=== PATIENT | female | born 1985 | race Two or more races ===

== ENCOUNTER 2023-12-24 07:23 | Emergency (ER) | payer MEDICAID, OTHER ==
[~2023-12-24] VITALS: Ht 162.6 cm; Wt 109.3 kg
[2023-12-24 07:58] VITALS: BP 124/82; PULSE 114; RESP 18; O2SAT 97
[2023-12-24] MEDS ORDERED: DOCU-94 PO (08:36)
[2023-12-24] MEDS ORDERED: HYDR25SU21 PR (08:36)
== END 2023-12-24 09:10 | disposition home or self-care (01) ==
LOC: ER 07:23
DX: K64.4 Residual hemorrhoidal skin tags (principal); Z98.890 Other specified postprocedural states

== ENCOUNTER 2024-12-25 12:42 | Emergency (ER) | payer MEDICAID ==
[~2024-12-25] VITALS: Ht 160 cm; Wt 113.2 kg
[~2024-12-25 12:42] MED LIST: DOCU-94 PO; HYDR25SU21 PR
[2024-12-25 12:44] VITALS: TEMP 98
[2024-12-25 13:28] VITALS: BP 125/77; PULSE 99; RESP 18; O2SAT 98
--- NOTE | 2024-12-25 14:05 | ED.PDOC ---
HPI (NEURO) HPI Comments 39-year-old female w/ hx of chx migraines presents [facility] . Patient reports on having this chronic headache for 10 years and has been taking all of her medications for which only subsides pain for 1 hour then comes back. Patient states the headache is on the left side, pressure-like sensation and a 7/10 on the scale. Patient takes Ajovy for one month, gabapentin 600 3 times a day, qulibta times every day. Patient notes on having sensitivity to light and sound. Denies thunderclap headache Denies vomiting Denies thunderclap headache Denies photophobia, phonophobia Denies head trauma around the time headache started Denies family history of brain issues persistent headaches Denies taking any blood thinner medication Denies vision/hearing changes Denies focal loss of strength/sensation or changes in speech Chief Complaint: Headache Time Seen by MD: 14:00 Primary Care Provider: MARLYS Reviewed Notes: Nurses Notes, Medications, Allergies Information Source: Patient Mode of Arrival: Ambulatory Severity: Moderate Headache Severity: Severe Timing: Other (Ten years) Duration: Since onset, Other (10 years) Prehospital treatment: None Headache Quality: Tight Headache Location: Temporal (Left side) Onset: At rest Circumstances: Spontaneous Symptoms: Other (Headache) Before: Normal During: Awake After: Headache History of: None Associated Signs and Symptoms: Headache Past Medical History Past Medical History (Other): Chronic headache Surgical History: Denies all surgeries TEST LEAD APPLICATION TESTING History: No Pertinent TEST LEAD APPLICATION TESTING History Family History Family History: Reviewed,noncontributory to illness, Unknown Social History Smoker: Non-Smoker Alcohol: Denies ETOH Use Drugs: Denies Drug Use Lives In: Home Constitutional: denies: chills, diaphoresis, fatigue, fever, malaise, sweats, weakness, others EENTM: denies: blurred vision, double vision, ear bleeding, ear discharge, ear drainage, ear pain, ear ringing, eye pain, eye redness, hearing loss, mouth pain, mouth swelling, nasal discharge, nose bleeding, nose congestion, nose pain, photophobia, tearing, throat pain, throat swelling, voice changes, others Respiratory: denies: cough, hemoptysis, orthopnea, SOB at rest, shortness of breath, SOB with excertion, stridor, wheezing, others Cardiovascular: denies: chest pain, dizzy spells, diaphoresis, Dyspnea on exertion, edema, irregular heart beat, left arm pain, lightheadedness, palpitations, PND, syncope, others Gastrointestinal: denies: abdomen distended, abdominal pain, blood streaked bowels, constipated, diarrhea, dysphagia, difficulty swallowing, hematemesis, melena, nausea, poor appetite, poor fluid intake, rectal bleeding, rectal pain, vomiting, others Genitourinary: denies: abnormal vagina bleeding, burning, dyspareunia, dysuria, flank pain, frequency, hematuria, incontinence, pain, , vagina discharge, urgency, others Neurological: reports: headache; denies: dizziness, fainting, left sided numbness, left sided weakness, numbness, paresthesia, pre-existing deficit, right sided numbness, right sided weakness, seizure, speech problems, tingling, tremors, weakness, others Musculoskeletal: denies: back pain, gout, joint pain, joint swelling, muscle pain, muscle stiffness, neck pain, others Integumetry: denies: bruises, change in color, change in hair/nails, dryness, laceration, lesions, lumps, rash, wounds, others Allergic/Immunocompromised: denies: Difficulty Healing, Frequent Infections, Hives, Itching, others Hematologic/Lymphatic: denies: anemia, blood clots, easy bleeding, easy bruising, swollen glands, others Endocrine: denies: excessive hunger, excessive sweating, excessive thirst, excessive urination, flushing, intolerance to cold, intolerance to heat, unexplained weight gain, unexplained weight loss, others Psychiatric: denies: anxiety, bipolar disorder, depression, hopeless, panic disorder, schizophrenia, sleepless, suicidal, others All Other Systems: Reviewed and Negative Physical Exam General Appearance: No Apparent Distress, Normal HEENT: Normal ENT Inspection, Pharynx Normal, TMs Normal Neck: Full Range of Motion, Non-Tender, Normal, Normal Inspection Respiratory: Chest Non-Tender, Lungs Clear, No Accessory Muscle Use, No Respiratory Distress, Normal Breath Sounds Cardiovascular: No Edema, No JVD, No Murmur, No Gallop, Normal Peripheral Pulses, Regular Rate/Rhythm Breast Exam: Deferred Gastrointestinal: No Organomegaly, Non Tender, No Pulsatile Mass, Normal Bowel Sounds, Soft Genitalia: Deferred Pelvic: Deferred Rectal: Deferred Extremities: No calf tenderness, Normal capillary refill, Normal inspection, Normal range of motion, Non-tender, No pedal edema Musculoskeletal : Apperance: Normal Neurologic: Alert, consultant electronics II-XII nml as Tested, Headache, No Motor Deficits, Normal Affect, Normal Mood, No Sensory Deficits Cerebellar Function: Normal Reflexes: Normal Skin: Dry, Normal Color, Warm Lymphatic: No Adenopathy Was a procedure done? Was a procedure done?: No Differential Diagnosis (SZ) Seizure: Other X-Ray, Labs, Meds, VS Vital Signs Date Time Temp Pulse Resp B/P (MAP) Pulse Ox O2 Delivery O2 Flow Rate FiO2 12/25/24 13:28 119 18 125/77 (93) 100 12/25/24 13:28 99 18 98 Room Air 12/25/24 12:44 98.0 124 15 125/79 100 98.0 Current Medications Medications (Trade) Dose Ordered Sig/Debbi Route Start Time Stop Time Status Last Admin Sodium Chloride 1,000 ml @ 1,000 mls/hr Q1H ONCE IV 12/25/24 13:45 12/25/24 14:44 DC 12/25/24 14:14 Dexamethasone Sodium Phosphate (Decadron Injection) 10 mg ONCE ONCE IM 12/25/24 16:15 12/25/24 16:16 DC 12/25/24 16:22 X-Ray, Labs, Meds, VS Comment 39-year-old female presents to the ER with a prior MHx of a headache and the [facility] complaint of a headache. Patient arrives alert and oriented, ABC's intact, afebrile, vital signs stable, saturating well in room air The patients history and physical exam are consistent with a benign headache. Likely migraine Considered subarachnoid hemorrhage however this is less likely given that the patient has had a similar and worst headaches in the past, the lack of trauma, and the slow onset with intermittent symptomatology. Given benign exam and history, CT imaging was discussed with the patient and was deferred during this visit. While in the ED, the patient was treated with migraine cocktail Patient was overall well-appearing and hemodynamically stable in the ED. They were able to ambulate and continued to have a nonfocal exam in the emergency department. Discussed continued symptomatic treatment at home. Recommended follow up with PCP. Return precautions to the ED discussed Counseled to start headache diary Recommended headache elimination diet Avoid prolonged periods of fasting Drink plenty of water Exercise daily, limit screen time Aim to sleep 8 to 9 hours per night, practice good hygiene ED precautions given Additional MDM Review of External, Non-ED records: External records reviewed. Discussion with independent historian (EMS, family) history obtained from the patient/parents (if applicable) at bedside Chronic conditions affecting care: None Social determinants of health affecting care: None Consideration of admission (observation or admission): I considered escalation of care to admission for this patient, however given the reassuring workup, the patient is safe for outpatient management. Discussion with the Radiology: No Tests considered but not performed: Prescription medication considered but not given: 12 lead EKG interpretation: Time of 1ST Reevaluation: 14:30 Reevaluation 1ST: Unchanged Patient Education/Counseling: Diagnosis, Treatment, Prognosis Family Education/Counseling: No Family Present Departure 1 Departure Time of Disposition: 16:14 Impression: Primary Impression: Migraine Qualified Codes: G43.909 - Migraine, unspecified, not intractable, without status migrainosus Disposition: 01 HOME / SELF CARE / HOMELESS Condition: Stable Discharged With: Relative Critical Care Note Critical Care Time?: No Stability Stability form required: No Heart Score Heart Score: Heart Score Response (Comments) Value History N/A 0 EKG N/A 0 Age N/A 0 Risk Factors N/A 0 Troponin N/A 0 Total 0 I personally scribed for ARELY DEE NP ([email or web address]) on 12/25/24 at 14:04. Electronically submitted by Randal Graves ([email or web address]). ARELY DEE NP Dec 25, 2024 14:04
[2024-12-25] MEDS: KETOROLAC TROMETH 30 MG/ML 1ML VIAL IV ONE (14:13)
[2024-12-25] MEDS: diphenhdrAMINE HCL 50 MG/1 ML VL IV ONE (14:13)
[2024-12-25] MEDS: PROCHLORPERAZINE EDISYLATE 5 MG/ML 2ML VIAL IV ONE (14:13)
[2024-12-25] MEDS: SODIUM CHLORIDE 0.9% 1,000 ML IV ONE (14:14)
== END 2024-12-25 16:30 | disposition home or self-care (01) ==
LOC: ER 12:42
DX: G43.909 Migraine, unspecified, not intractable, without status migrainosus (principal); Z79.899 Other long term (current) drug therapy
CPT/HCPCS: 96360; 96361; 96372; 99283; J0780; J1100; J1200; J1885; J7030